=== PATIENT | female | born 1990 | race Two or more races ===

== ENCOUNTER 2017-03-07 21:09 | Emergency (ER) | payer OTHER ==
[~2017-03-07] VITALS: Ht 154.9 cm; Wt 63.2 kg
[2017-03-07] MEDS ORDERED: IBUP-1022 PO (21:19)
[2017-03-07] MEDS ORDERED: KETOROLAC 30 MG/ML VIAL (J1885) IV ONE (22:00)
[2017-03-07] MEDS ORDERED: diphenhydrAMINE INJ 50MG/ML VIAL (J1200) IV ONE (22:00)
[2017-03-07] MEDS ORDERED: METOCLOPRAMIDE INJ 10MG/2ML VIAL (J2765) IV ONE (22:00)
[2017-03-07] MEDS ORDERED: NS 1,000 ML IV ONE (22:00)
[2017-03-07 23:25] VITALS: BP 113/69
[2017-03-12 00:07] LABS: Lyme Disease IgG/IgM Antibodie <0.91 ISR (0.00-0.90); Lyme Disease IgM Ab Quantitati <0.80 index (0.00-0.79)
== END 2017-03-07 23:29 | disposition home or self-care (01) ==
LOC: M ED 21:09
DX: G43.909 Migraine, unspecified, not intractable, without status migrainosus (principal)
CPT/HCPCS: 86617; 96361; 96374; 96375; 99283; J1200; J1885; J2765